=== PATIENT | male | born 1955 | race Caucasian/White ===

== ENCOUNTER 2020-02-08 12:13 | Emergency (ER) | payer OTHER ==
[2020-02-08 12:33] VITALS: TEMP 98.5; BMI 28.1
--- NOTE | 2020-02-08 13:11 | PDOC ---
History of Present Illness - General Chief Complaint: Revisit, Lab Variance Stated Complaint: ABN LABS/LEG WEAKNESS History Source: Patient Exam Limitations: No Limitations - History of Present Illness Initial Comments: 02/08/20 16:08 64 yo M with a hx of HIV and DM presents to the emergency department upon referral for lab abnormality. Per the chart, the patient saw KIERAN Ba who stated the patient had hyponatremia on labs drawn this past saturday. Per the patient, he has had cramps in his legs bilaterally without incontinence of the stool and urine. Denies decreased motor and sensory function in his legs. Denies trauma to the back. Per the patient, he has noted elevated sugars. Per the patient, he is inconsistent with taking his glipizide and metformin, with last dosage yesterday. The patient endorses increased thirst. Denies the following: fevers, chills, chest pain, SOB, nausea, vomiting, dysuria, hematuria, diarrhea, abdominal pain, back pain, neck pain, rash, and leg weakness/swelling. Past History - Medical History Allergies/Adverse Reactions: Allergies Allergy/AdvReac Type Severity Reaction Status Date / Time No Known Drug Allergies Allergy Verified 02/08/20 12:29 Home Medications: Ambulatory Orders Methadone HCl 120 mg PO DAILY 07/30/16 Miscellaneous Medical Supply [Glucometer Device] 1 each TD ASDIR #1 kit 06/25/18 Melatonin/Pyridoxine HCl (B6) [Melatonin 5 mg Tablet] 1 each PO HS PRN #30 tablet 03/25/19 Lidocaine 5% Patch [Lidoderm -] 1 unit TD ASDIR #1 box 05/20/19 Naloxone HCl [Narcan] 4 mg NS PRN #2 spray 07/22/19 Hydrocortisone 1% Cream [Hytone 1% Cream -] 1 applic TP BID #1 tube 09/22/19 Quetiapine Fumarate [Seroquel -] 100 mg PO HS #30 tablet 01/07/20 Zolpidem Tartrate [Ambien] 5 mg PO HS PRN #20 tablet MDD 1 01/07/20 Acetaminophen [Tylenol .Regular Strength -] 2 tab PO BID PRN #30 tablet 01/28/20 Cyclobenzaprine HCl [Flexeril 10 mg] 1 tab PO HS PRN #30 tablet 01/28/20 Alcohol Antiseptic Pads [Alcohol Prep Pads] 1 each TP BID #1 box 02/05/20 Aspirin [Aspirin EC] 1 tab PO DAILY #30 tablet.dr 02/05/20 Atorvastatin Ca [Lipitor] 1 tab PO HS #30 tablet 02/05/20 Blood Sugar Diagnostic [Test Strips] 1 each MC BIDAC #1 box 02/05/20 Clotrimazole [Mycelex Dante's -] 1 tab PO 5XD #35 dante 02/05/20 Darunavir Ethanolate [Prezista -] 1 tab PO DAILY #30 tablet 02/05/20 Docusate Sodium [Colace -] 1 cap PO HS #30 capsule 02/05/20 Glipizide [Glipizide Xl] 1 tab PO DAILY #30 tab.sr 02/05/20 Metformin HCl [Glucophage] 1 tab PO DAILY #30 tablet 02/05/20 Nicotine [Nicotine Patch 7 mg/24 hr] 1 each TD DAILY #1 box 02/05/20 Raltegravir [Isentress] 1 tab PO BID #60 tab 02/05/20 Ritonavir/Lopinavir [Kaletra 200Mg/50Mg -] 2 tab PO BID #120 tablet 02/05/20 Anemia: No Asthma: No Cancer: No Cardiac Disorders: No CVA: No COPD: No CHF: No Dementia: No Diabetes: Yes GI Disorders: No ( ) Disorders: No HTN: No Hypercholesterolemia: No Liver Disease: No Seizures: No Thyroid Disease: No - Surgical History Abdominal Surgery: No Appendectomy: No Cardiac Surgery: No Cholecystectomy: No Lung Surgery: No Neurologic Surgery: No - Psycho-Social/Smoking History Smoking Status: Yes Smoking History: Current every day smoker Have you smoked in the past 12 months: Yes Number of Cigarettes Smoked Daily: 10 If you are a former smoker, when did you quit?: 4 years ago Cigars Per Day: 0 Information on smoking cessation initiated: Yes 'Breaking Loose' booklet given: 04/16/12 - Substance Abuse Hx (Audit-C & DAST Scrn) How often the patient has a drink containing alcohol: Never Score: In Men: 4 or > Positive; In Women: 3 or > Positive: 0 Screen Result (Pos requires Nsg. Audit-10AR): Negative In the last yr the pt used illegal drug/Rx for NonMed reason: No Score: Yes response is considered Positive: 0 Screen Result (Positive result requires Nsg. DAST-10): Negative Review of Systems - Review of Systems Able to Perform ROS?: Yes Is the patient limited Wallisian proficient: No Constitutional: No: Chills, Diaphoresis, Fever, Weakness HEENTM: No: Eye Pain, Ear Pain, Nose Pain, Throat Pain Respiratory: No: Cough, Shortness of Breath Cardiac (ROS): No: Chest Pain, Lightheadedness ABD/GI: Yes: Poor Fluid Intake. No: Diarrhea, Nausea, Vomiting : No: Dysuria, Hematuria Musculoskeletal: No: Back Pain, Joint Pain Integumentary: No: Rash Neurological: No: Headache Endocrine: Yes: Increased Thirst, Increased Urine Hematologic/Lymphatic: No: Anemia *Physical Exam - Vital Signs Last Vital Signs Temp Pulse Resp BP Pulse Ox 98.5 F 91 H 16 112/72 98 02/08/20 12:29 02/08/20 12:29 02/08/20 12:29 02/08/20 12:29 02/08/20 12:29 - Physical Exam General Appearance: Yes: Nourished, Appropriately Dressed. No: Apparent Distress, Intoxicated HEENT: positive: EOMI, ДМИТРИЙ, Normal Voice, Symmetrical, Pharynx Normal, Hearing Grossly Normal, Other (dry mucous membranes). negative: Pale Conjunctivae, Scleral Icterus (R), Scleral Icterus (L), Muffled/Hoarse voice, Pharyngeal Erythema, Tonsillar Exudate, Tonsillar Erythema, Nasal Congestion, Rhinorrhea, Sinus Tenderness, Excessive drooling Neck: positive: Trachea midline, Supple. negative: Tender, Lymphadenopathy (R), Lymphadenopathy (L) Respiratory/Chest: positive: Lungs Clear, Normal Breath Sounds. negative: Chest Tender, Respiratory Distress, Accessory Muscle Use Cardiovascular: positive: Regular Rhythm, Regular Rate, S1, S2. negative: Systolic Murmur Gastrointestinal/Abdominal: positive: Normal Bowel Sounds, Flat, Soft. negative: Tender, Distended, Guarding, Rebound Lymphatic: negative: Adenopathy Musculoskeletal: positive: Normal Inspection. negative: CVA Tenderness, Vertebral Tenderness Extremity: positive: Normal Capillary Refill, Normal Inspection, Normal Range of Motion. negative: Tender, Swelling, Calf Tenderness Integumentary: positive: Normal Color, Dry, Warm Neurologic: positive: singer back tender II-XII NML intact, Fully Oriented, Alert, Normal Mood/Affect, Normal Response, Motor Strength 5/5, Finger to Nose (intact bilaterally), Other (gait within normal limits ). negative: EOM Palsy, Sensory Deficit ED Treatment Course - LABORATORY CBC & Chemistry Diagram: 02/08/20 14:31 02/08/20 14:31 Medical Decision Making - Medical Decision Making 64 yo M with a hx of HIV and DM presents to the emergency department upon referral for lab abnormality. Per the chart, the patient saw KIERAN Ba who stated the patient had hyponatremia on labs drawn this past saturday. Initial vitals; Initial Vital Signs Temp Pulse Resp BP Pulse Ox 98.5 F 91 H 16 112/72 98 02/08/20 12:29 02/08/20 12:29 02/08/20 12:29 02/08/20 12:29 02/08/20 12:29 Work up: The patient presents with hyponatremia With correction of the hyperglycemia to the 02/05/2020 labs which prompted the referral, the patient has a sodium level of 136 which is within normal limits Will repeat labs to ensure the patient does not have hyponatremia. Will provide 2 L of fluids to help the dehydration and hyperglycemia Laboratory Tests 02/08/20 02/08/20 02/08/20 14:31 14:31 16:30 WBC 4.6 RBC 4.30 Hgb 13.4 Hct 40.1 MCV 93.3 MCH 31.2 MCHC 33.5 RDW 13.2 Plt Count 137 MPV 9.4 Absolute Neuts (auto) 2.6 Neutrophils % 56.5 Lymphocytes % 33.8 Monocytes % 7.9 Eosinophils % 1.3 Basophils % 0.5 Nucleated RBC % 0 Sodium 130 L Potassium 4.3 Chloride 95 L Carbon Dioxide 25 Anion Gap 11 BUN 17.7 Creatinine 1.0 Est GFR (CKD-EPI)AfAm 93.08 Est GFR (CKD-EPI)NonAf 80.31 POC Glucometer Random Glucose 325 H Calcium 9.3 Magnesium 1.9 Total Bilirubin 0.5 AST 22 ALT 26 Alkaline Phosphatase 58 Creatine Kinase 97 Troponin I < 0.02 Total Protein 7.4 Albumin 3.7 Urine Color Yellow Urine Appearance Clear Urine pH 5.0 Ur Specific [place] 1.021 Urine Protein Negative Urine Glucose (UA) 3+ H Urine Ketones Negative Urine Blood Negative Urine Nitrite Negative Urine Bilirubin Negative Urine Urobilinogen 0.2 Ur Leukocyte Esterase Negative 02/08/20 17:45 WBC RBC Hgb Hct MCV MCH MCHC RDW Plt Count MPV Absolute Neuts (auto) Neutrophils % Lymphocytes % Monocytes % Eosinophils % Basophils % Nucleated RBC % Sodium Potassium Chloride Carbon Dioxide Anion Gap BUN Creatinine Est GFR (CKD-EPI)AfAm Est GFR (CKD-EPI)NonAf POC Glucometer 252 Random Glucose Calcium Magnesium Total Bilirubin AST ALT Alkaline Phosphatase Creatine Kinase Troponin I Total Protein Albumin Urine Color Urine Appearance Urine pH Ur Specific [place] Urine Protein Urine Glucose (UA) Urine Ketones Urine Blood Urine Nitrite Urine Bilirubin Urine Urobilinogen Ur Leukocyte Esterase POC glucose is 252 on repeat. Patient feels significantly better and has cessation of leg symptoms The patient was instructed to take his medications as prescribed. per the patient, he was inconsistent in his use of glipizide and metformin, likely leading to persistent elevations of hyperglycemia. Per the patient, he also was consuming high-sugar content beverages. I advised the patient to cease these activities. I spoke to his PCP; Ruthann Perez who agreed he needs to be compliant with his medications and proceed to make an appointment with her within the next 48 hours. CXR shows no infiltrates with atelectasis at the base. EKG shows NSR without ST elevations or depresisons. Patient was given strict return precautions Patient was able to ambulate on their own volition without difficulty Discharge - Discharge Information Problems reviewed: Yes Clinical Impression/Diagnosis: Hyperglycemia, Hyponatremia Condition: Good Disposition: HOME - Admission No - Follow up/Referral Referrals: Ruthann Perez, PREVENTATIVE MAINTENANCE TECHNICIAN [Primary Care Provider] - - Patient Discharge Instructions Patient Printed Discharge Instructions: DI for Hyperglycemia -- Adult Additional Instructions: You were seen in the emergency department for the evaluation of your high blood sugar and low sodium. Your sodium is within normal limits when accounted for hyperglycemia. Your uncontrollable sugars are likely due to medication non-adherence. Please take them as prescribed by Ruthann Perez. Please return to the emergency department if you have worsening symptoms or new concerning symptoms such as increased work of breathing, pain, and fevers. Please follow up with Ruthann Perez within 48 hours after discharge for follow up care and m anagement. I spoke to Ruthann Perez and she agreed to see you within this week. - Post Discharge Activity
[2020-02-08] MEDS ORDERED: SODIUM CHLORIDE 1,000 ML IV STA ×2 (13:47→15:25)
[2020-02-08 14:45] LABS: BASO % 0.5 % (0-2.0); EOS % 1.3 % (0-4.5); HEMATOCRIT 40.1 % (35.4-49); HEMOGLOBIN 13.4 GM/dL (11.7-16.9); LYMPH % 33.8 % (8-40); MCH 31.2 pg (25.7-33.7); MCHC 33.5 g/dl (32.0-35.9); MEAN CELL VOLUME 93.3 fl (80-96); MEAN PLT VOLUME 9.4 fl (7.5-11.1); MONO % 7.9 % (3.8-10.2); NEUT % 56.5 % (42.8-82.8); PLATELET COUNT 137 K/MM3 (134-434); RDW 13.2 % (11.9-15.9); WHITE BLOOD COUNT 4.6 K/mm3 (4.0-10.0)
[2020-02-08 15:04] LABS: CHLORIDE 95 mmol/L (98-107); POTASSIUM 4.3 mmol/L (3.5-5.1); SODIUM 130 mmol/L (136-145)
[2020-02-08 15:07] LABS: ALBUMIN 3.7 g/dl (3.4-5.0); ANION GAP 11 MMOL/L (8-16); BLOOD UREA NITROGEN 17.7 mg/dL (7-18); CALCIUM 9.3 mg/dL (8.5-10.1); CO2 25 mmol/L (21-32); GLUCOSE,RANDOM 325 mg/dL (74-106); MAGNESIUM 1.9 mg/dL (1.8-2.4)
[2020-02-08 15:10] LABS: SGOT/AST 22 U/L (15-37); SGPT/ALT 26 U/L (13-61)
[2020-02-08 15:12] LABS: BILIRUBIN,TOTAL 0.5 mg/dL (0.2-1); TOT PROT 7.4 g/dl (6.4-8.2)
[2020-02-08 15:14] LABS: ALK PHOS 58 U/L (45-117)
--- NOTE | 2020-02-08 15:14 | EKG ---
Test Reason : Blood Pressure : / mmHG Vent. Rate : 076 BPM Atrial Rate : 076 BPM P-R Int : 158 ms QRS Dur : 090 ms QT Int : 360 ms P-R-T Axes : 077 062 058 degrees QTc Int : 405 ms NORMAL SINUS RHYTHM NORMAL ECG WHEN COMPARED WITH ECG OF 05-FEB-2020 08:57, NO SIGNIFICANT CHANGE WAS FOUND Confirmed by DL LUDWIG MD ([id number]) on 02/08/2020 3:14:23 PM Referred By: Confirmed By:DL LUDWIG MD
--- NOTE | 2020-02-08 15:28 | PDOC ---
Documentation entered by Oumou De La Torre SCRIBE, acting as scribe for Meet Mg MD. Meet Mg MD: This documentation has been prepared by the Wil mendiola Xhesika, SCRIBE, under my direction and personally reviewed by me in its entirety. I confirm that the documentation accurately reflects all work, treatment, procedures, and medical decision making performed by me. Attending Attestation - Resident Resident Name: Eddie Pendleton - ED Attending Attestation I have performed the following: I have examined & evaluated the patient, The case was reviewed & discussed with the resident, I agree w/resident's findings & plan, Exceptions are as noted - HPI HPI: 02/08/20 13:21 64y/o M with a pmh of DM on metformin and chronic leg instability who presents to the ED sent by PMD for low sodium (130) and BLE swelling and cramps. Pt states he had outpatient labs done on Sunday 02/04 and received a call today from PMD, prompting pt to come to the ED for low sodium levels. Pt reports 2 weeks of BLE swelling and cramps R>L, worse at night. Pt states he had a similar episode 7 years ago. Pt reports frequent urination and feeling more thirsty than usual. Pt states he has been eating junk food and his GS levels have been higher and not well controlled. Pt states he had a 10lb weight loss in the last month. Allergies: NKDA Social Hx: On disability, Former IV drug user, former 1ppd tobacco user (quit 2 weeks ago) - Physicial Exam PE: 02/08/20 13:29 Vitals: Triage Vital signs reviewed General Appearance: no acute distress, well nourished well developed, Chest Wall: Nontender Cardiac: Regular rate and rhythm, no murmurs, no rubs, no gallops, Lungs: Clear to auscultation bilateral, good air movement bilaterally, Abdomen: Soft, nondistended, normal bowel sounds, nontender to palpation Extremities: Full range of motion to all extremities, no cyanosis, clubbing, or edema Skin: Warm and dry, no rashes or lesions, no petechiae Neuro: AOX3; Cranial Nerves 2-12 grossly c intact, Strength intact to all extremities, Sensation intact to all extremities Psych: normal mood, normal affect - Medical Decision Making 02/09/20 15:54 Sodium 135 when corrected for hyperglycemia patient endorses not taking his diabetes medications as prescribed Will recommend strict adherence to his glipizide and Metformin he will follow-up with his primary care doctor in 2 to 3 days Findings, need for follow-up and strict return instructions discussed with patient. Discharge - Discharge Information Problems reviewed: Yes Clinical Impression/Diagnosis: Hyperglycemia, Hyponatremia Condition: Good Disposition: HOME - Follow up/Referral Referrals: Ruthann Perez [employer] [Primary Care Provider] - - Patient Discharge Instructions Patient Printed Discharge Instructions: DI for Hyperglycemia -- Adult Additional Instructions: You were seen in the emergency department for the evaluation of your high blood sugar and low sodium. Your sodium is within normal limits when accounted for hyperglycemia. Your uncontrollable sugars are likely due to medication non- adherence. Please take them as prescribed by Ruthann Perez. Please return to the emergency department if you have worsening symptoms or new concerning symptoms such as increased work of breathing, pain, and fevers. Please follow up with Ruthann Perez within 48 hours after discharge for follow up care and management. I spoke to Ruthann Perez and she agreed to see you within this week. - Post Discharge Activity
[2020-02-08 17:10] LABS: URINE APPEARANCE CLEAR; URINE BILIRUBIN NEGATIVE (NEGATIVE); URINE COLOR YELLOW; URINE GLUCOSE (UA) 3+ (NEGATIVE); URINE KETONE NEGATIVE (NEGATIVE); URINE LEUK ESTERASE NEGATIVE (NEGATIVE); URINE NITRITE NEGATIVE (NEGATIVE); URINE PROTEIN NEGATIVE (NEGATIVE); URINE UROBILINOGEN 0.2 mg/dL (0.2-1.0)
[2020-02-08 17:56] VITALS: BP 118/89; PULSE 90
== END 2020-02-08 17:58 | disposition home or self-care (01) ==
LOC: JER 12:13
PROC: 3E0337Z Introduction of Electrolytic and Water Balance Substance into Peripheral Vein, Percutaneous Approach (ICD-10-PCS; principal; 2020-02-08)
PROC: 3E0337Z Introduction of Electrolytic and Water Balance Substance into Peripheral Vein, Percutaneous Approach (ICD-10-PCS; 2020-02-08)
DX: R73.9 Hyperglycemia, unspecified (principal); E87.1 Hypo-osmolality and hyponatremia
CPT/HCPCS: 36415; 71045-TC-FY; 80053; 81003; 82550; 82962; 83735; 84484; 85025; 87086; 93005; 93010; 99285-25

== ENCOUNTER 2020-02-22 17:28 | Emergency (ER) | payer OTHER ==
[2020-02-22 18:14] VITALS: BP 157/87; PULSE 91; TEMP 98.8; BMI 28.1
== END 2020-02-22 18:21 | disposition home or self-care (01) ==
LOC: FER 17:28
DX: M79.662 Pain in left lower leg (principal); R11.0 Nausea; G58.9 Mononeuropathy, unspecified
CPT/HCPCS: 99283-25

== ENCOUNTER 2021-06-22 04:54 | Day surgery (SDC) | payer OTHER ==
[2021-06-19 09:39] VITALS: BMI 28.8
[2021-06-22 10:02] VITALS: TEMP 97.8
[2021-06-22 10:10] VITALS: BP 115/61; PULSE 80
== END 2021-06-22 10:19 | disposition home or self-care (01) ==
LOC: JASU-ENDO 04:54
PROVIDERS: ATTEND Internal Medicine Gastroenterology
PROC: 0DJD8ZZ Inspection of Lower Intestinal Tract, Via Natural or Artificial Opening Endoscopic (ICD-10-PCS; principal; 2021-06-22 08:45)
DX: Z12.11 Encounter for screening for malignant neoplasm of colon (principal); Z21 Asymptomatic human immunodeficiency virus [HIV] infection status; Z79.899 Other long term (current) drug therapy; E11.9 Type 2 diabetes mellitus without complications; Z79.84 Long term (current) use of oral hypoglycemic drugs
CPT/HCPCS: 82962

== ENCOUNTER 2022-05-06 12:09 | Emergency (ER) | payer OTHER ==
[2022-05-06 12:34] VITALS: TEMP 98; BMI 26.6
[2022-05-06] MEDS ORDERED: ACETAMINOPHEN 1000 MG/100 ML BAG IVPB ONE (12:39)
[2022-05-06] MEDS ORDERED: ACETAMINOPHEN INJECTION 100 ML IVPB ONE (13:01)
[2022-05-06 13:15] LABS: INR 1.03 (0.83-1.09); PROTHROMBIN TIME (PATIENT) 11.8 SEC (9.7-13.0)
[2022-05-06 13:17] LABS: ACTIVATED PTT 31.9 SECONDS (25.2-36.5)
[2022-05-06 13:18] LABS: HEMATOCRIT 41.1 % (35.4-49); HEMOGLOBIN 14.2 G/dL (11.7-16.9); MCH 32.1 pg (25.7-33.7); MCHC 34.5 g/dl (32.0-35.9); MEAN CELL VOLUME 93.1 fl (80-96); PLATELET COUNT 153.7 10^3/uL (134-434); RBC 4.41 10^6/uL (4.00-5.60); RDW 13.4 % (11.9-15.9); WHITE BLOOD COUNT 6.2 10^3/uL (4.0-10.8)
[2022-05-06 13:24] LABS: ALBUMIN 4.3 g/dl (3.4-5.0); CALCIUM 9.5 mg/dl (8.5-10); CREATININE 1.3 mg/dl (0.55-1.3); MAGNESIUM 1.6 mg/dL (1.8-2.4); TOT PROT 7.2 g/dl (6.4-8.2)
[2022-05-06] MEDS ORDERED: MAGNESIUM SULF 50% (8.12 MEQ/2 ML-1 GM VIAL) IVPB ONE (14:07)
[2022-05-06] MEDS ORDERED: MAGNESIUM SULFATE IN WATER 2 GM/50 ML IVPB IVPB ONE (14:10)
[2022-05-06 14:48] LABS: LACTIC ACID 5.5 mmol/L (0.4-2.0)
[2022-05-06] MEDS ORDERED: SODIUM CHLORIDE 1,000 ML IV ONE (14:52)
[2022-05-06] MEDS ORDERED: SODIUM CHLORIDE 0.9% 500 ML INFUS.BAG IV ONE (16:26)
[2022-05-06 17:13] VITALS: BP 132/78; PULSE 84; RESP 18
[2022-05-06 19:10] LABS: LACTIC ACID 2.4 mmol/L (0.4-2.0)
== END 2022-05-06 18:00 | disposition left against medical advice (07) ==
LOC: FER 12:09
PROC: 3E0333Z Introduction of Anti-inflammatory into Peripheral Vein, Percutaneous Approach (ICD-10-PCS; principal; 2022-05-06)
PROC: 3E033GC Introduction of Other Therapeutic Substance into Peripheral Vein, Percutaneous Approach (ICD-10-PCS; 2022-05-06)
PROC: 3E0337Z Introduction of Electrolytic and Water Balance Substance into Peripheral Vein, Percutaneous Approach (ICD-10-PCS; 2022-05-06)
DX: R10.12 Left upper quadrant pain (principal)
CPT/HCPCS: 36415; 71045-TC-FY; 74175-TC; 80053; 81003; 83605; 83690; 83735; 84484; 85027; 85610; 85730; 87086; 93005; 99285-25; Q9967

== ENCOUNTER 2022-11-27 10:00 | Inpatient (IN) | payer MEDICARE, OTHER ==
[2022-12-19 14:56] VITALS: BMI 27.7
[2022-12-24] MEDS ORDERED: MIDAZOLAM HCL 2 MG/2 ML SINGLE DOSE VIAL ONE (12:45)
[2022-12-24] MEDS ORDERED: PROPOFOL 20 ML ONE (12:45)
[2022-12-24] MEDS ORDERED: HEPARIN NA (PORCINE) 5,000 UNITS/ML 1ML VIAL ONE (12:55)
[2022-12-24] MEDS ORDERED: ONDANSETRON 4 MG/2 ML VIAL ONE ×2 (13:53→15:07)
[2022-12-24] MEDS ORDERED: DEXAMETHASONE SOD PHOSPHATE 4 MG/1 ML VIAL ONE (13:53)
[2022-12-24] MEDS ORDERED: cefOXitin SODIUM 2 GM VIAL (RESTRICTED TO ID) IVPB ONE (14:01)
[2022-12-24] MEDS ORDERED: HEPARIN NA (PORCINE) 5,000 UNITS/ML 1ML VIAL SQ ONE (14:04)
[2022-12-24] MEDS ORDERED: BUPIVACAINE HCL/PF 0.25% (2.5MG/ML) 10 ML VIAL IJ ONE (14:17)
[2022-12-24] MEDS ORDERED: HYDROmorphone HCl 2 MG/ML VIAL ONE (14:22)
[2022-12-24] MEDS ORDERED: ACETAMINOPHEN INJECTION 100 ML IVPB ONE (14:22)
[2022-12-24] MEDS ORDERED: KETOROLAC TROMETHAMINE 30 MG/1 ML VIAL ONE (14:59)
[2022-12-24] MEDS ORDERED: GLYCOPYRROLATE 0.2 MG/1 ML VIAL ONE (15:07)
[2022-12-24] MEDS ORDERED: NEOSTIGMINE METHYLSULFATE 0.5 MG/1 ML - 10 ML MDV ONE (15:07)
[2022-12-24] MEDS ORDERED: ONDANSETRON 4 MG/2 ML VIAL IVPUSH PRN (16:37)
[2022-12-24] MEDS ORDERED: LACTATED RINGERS SOLUTION 1,000 ML IV SCH (16:45)
[2022-12-24] MEDS ORDERED: oxyCODONE HCL 10 MG SUSTAINED ACTING TABLET PO ONE (17:49)
[2022-12-24] MEDS ORDERED: oxyCODONE HCL 10 MG SUSTAINED ACTING TABLET ONE (19:21)
[2022-12-24 20:35] VITALS: BP 142/83; PULSE 76; RESP 20; TEMP 97.9
== END 2022-12-24 19:50 | disposition home or self-care (01) | DRG 331 ==
LOC: EDSTATUS 12-24 08:00 → J2C 12-24 10:00 → UNDOADMIN 12-24 11:50 → J2C 12-24 11:50
PROVIDERS: ADMIT Surgery; ATTEND Surgery
PROC: 0DTH4ZZ Resection of Cecum, Percutaneous Endoscopic Approach (ICD-10-PCS; principal; 2022-12-24 12:00)
DX: K38.8 Other specified diseases of appendix (principal); E11.9 Type 2 diabetes mellitus without complications; I10 Essential (primary) hypertension
CPT/HCPCS: 82962; 88304-TC; 94760; J1644

== ENCOUNTER 2023-12-19 12:26 | Emergency (ER) | payer MEDICARE, OTHER ==
[2023-12-19 12:37] VITALS: BMI 25.8
[2023-12-19] MEDS: SODIUM CHLORIDE 0.9% 500 ML INFUS.BAG IV ONE ×2 (13:35→14:14)
[2023-12-19 14:03] LABS: BASO % 0.3 % (0-2.0); EOS % 0.2 % (0-4.5); HEMATOCRIT 38.2 % (35.4-49); HEMOGLOBIN 12.9 GM/dL (11.7-16.9); LYMPH % 15.4 % (8-40); MCH 32.7 pg (25.7-33.7); MCHC 33.8 g/dl (32.0-35.9); MEAN CELL VOLUME 96.8 fl (80-96); MEAN PLT VOLUME 8.6 fl (7.5-11.1); MONO % 5.9 % (3.8-10.2); NEUT % 78.2 % (42.8-82.8); PLATELET COUNT 151 10^3/uL (134-434); RBC 3.95 M/mm3 (4.00-5.60); RDW 15.6 % (11.9-15.9); WHITE BLOOD COUNT 5.4 K/mm3 (4.0-10.0)
[2023-12-19 14:03] LABS: PH,URINE 5.5 (5.0-8.0); URINE APPEARANCE CLEAR; URINE BILIRUBIN NEGATIVE (NEGATIVE); URINE COLOR YELLOW; URINE GLUCOSE (UA) 3+ (NEGATIVE); URINE KETONE NEGATIVE (NEGATIVE); URINE LEUK ESTERASE NEGATIVE (NEGATIVE); URINE NITRITE NEGATIVE (NEGATIVE); URINE PROTEIN NEGATIVE (NEGATIVE); URINE UROBILINOGEN 0.2 mg/dL (0.2-1.0)
[2023-12-19 14:24] LABS: CHLORIDE 96 mmol/L (98-107); POTASSIUM 4.6 mmol/L (3.5-5.1); SODIUM 133 mmol/L (136-145)
[2023-12-19 14:26] LABS: MAGNESIUM 1.8 mg/dL (1.8-2.4)
[2023-12-19 14:27] LABS: CALCIUM 9.7 mg/dL (8.5-10.1)
[2023-12-19 14:28] LABS: ALBUMIN 3.8 g/dl (3.4-5.0); ANION GAP 12 mmol/L (4-13); BLOOD UREA NITROGEN 22.8 mg/dL (7-18); CO2 25 mmol/L (21-32)
[2023-12-19 14:29] LABS: PHOSPHOROUS 2.9 mg/dL (2.5-4.9)
[2023-12-19 14:32] LABS: BILIRUBIN,TOTAL 0.9 mg/dL (0.2-1); CREATININE 1.3 mg/dL (0.55-1.3); SGOT/AST 22 U/L (15-37); SGPT/ALT 33 U/L (13-61)
[2023-12-19 14:33] LABS: TOT PROT 7.3 g/dl (6.4-8.2)
[2023-12-19 14:34] LABS: ALK PHOS 59 U/L (45-117)
[2023-12-19 14:35] LABS: GLUCOSE,RANDOM 551 mg/dL (74-106)
[2023-12-19 14:38] LABS: VENOUS O2 SATURATION 84.3 % (70-80); VENOUS PCO2 43.5 mmHg (38-52); VENOUS PH 7.353 (7.310-7.410)
[2023-12-19] MEDS ORDERED: INSULIN REGULAR HUMAN 100 UNITS/ML *VIAL ONE (14:58)
[2023-12-19 14:59] VITALS: RESP 19
[2023-12-19] MEDS: INSULIN REGULAR HUMAN 100 UNITS/ML *VIAL SQ ONE (15:01)
[2023-12-19 15:26] LABS: LACTIC ACID 2.7 mmol/L (0.4-2.0)
[2023-12-19 18:21] VITALS: BP 144/62; PULSE 89; TEMP 98.2
== END 2023-12-19 18:17 | disposition home or self-care (01) ==
LOC: JER 12:26
PROC: 3E013GC Introduction of Other Therapeutic Substance into Subcutaneous Tissue, Percutaneous Approach (ICD-10-PCS; principal; 2023-12-19)
DX: E11.65 Type 2 diabetes mellitus with hyperglycemia (principal); R53.1 Weakness; R35.0 Frequency of micturition; Z20.822 Contact with and (suspected) exposure to COVID-19; Z79.4 Long term (current) use of insulin
CPT/HCPCS: 0241U-QW; 36415; 71045-TC-FY; 80053; 81003; 82010; 82803; 82962; 83036; 83605; 83735; 84100; 84484; 85025; 87086; 93005; 93010; 96372; 99285-25

== ENCOUNTER 2023-12-22 10:45 | Observation (INO) | payer MEDICARE, OTHER ==
[2023-12-22 11:11] VITALS: RESP 18
[2023-12-22] MEDS: SODIUM CHLORIDE 0.9% 500 ML INFUS.BAG IV ONE ×2 (12:39→12:48)
[2023-12-22 12:51] LABS: BASO % 0.3 % (0-2.0); EOS % 0.2 % (0-4.5); HEMATOCRIT 36.6 % (35.4-49); HEMOGLOBIN 12.9 GM/dL (11.7-16.9); LYMPH % 22.7 % (8-40); MCH 33.5 pg (25.7-33.7); MCHC 35.2 g/dl (32.0-35.9); MEAN CELL VOLUME 94.9 fl (80-96); MEAN PLT VOLUME 8.2 fl (7.5-11.1); MONO % 6.2 % (3.8-10.2); NEUT % 70.6 % (42.8-82.8); PLATELET COUNT 141 10^3/uL (134-434); RBC 3.86 M/mm3 (4.00-5.60); RDW 16.3 % (11.9-15.9); WHITE BLOOD COUNT 5.6 K/mm3 (4.0-10.0)
[2023-12-22 12:54] LABS: POTASSIUM 4.5 mmol/L (3.5-5.1)
[2023-12-22 12:58] LABS: CALCIUM 10.3 mg/dL (8.5-10.1)
[2023-12-22 12:59] LABS: ALBUMIN 3.9 g/dl (3.4-5.0)
[2023-12-22 13:02] LABS: CREATININE 1.2 mg/dL (0.55-1.3)
[2023-12-22 13:04] LABS: BILIRUBIN,TOTAL 0.8 mg/dL (0.2-1)
[2023-12-22 13:07] LABS: ACTIVATED PTT 28.5 SECONDS (25.2-36.5); INR 0.95 (0.83-1.09); PROTHROMBIN TIME (PATIENT) 10.8 SEC (9.7-13.0)
[2023-12-22 15:32] LABS: URINE APPEARANCE CLEAR; URINE BILIRUBIN NEGATIVE (NEGATIVE); URINE COLOR YELLOW; URINE GLUCOSE (UA) 3+ (NEGATIVE); URINE KETONE NEGATIVE (NEGATIVE); URINE LEUK ESTERASE NEGATIVE (NEGATIVE); URINE NITRITE NEGATIVE (NEGATIVE); URINE PROTEIN NEGATIVE (NEGATIVE); URINE UROBILINOGEN 0.2 mg/dL (0.2-1.0)
[2023-12-22] MEDS: APIXABAN 5 MG TABLET PO SCH (16:04)
[2023-12-22] MEDS ORDERED: QUEtiapine FUMARATE 50 MG TABLET ONE (21:17)
[2023-12-22] MEDS: ZOLPIDEM TARTRATE 5 MG TABLET PO SCH (21:39)
[2023-12-22] MEDS: QUEtiapine FUMARATE 100 MG TABLET (FP) PO SCH (21:39)
[2023-12-23] MEDS: metFORMIN HCL 500 MG TABLET (FP) PO SCH (06:24)
[2023-12-23] MEDS: EMPAGLIFLOZIN (JARDIANCE) 10 MG TABLET PO SCH (06:24)
[2023-12-23 08:45] LABS: BASO % 0.4 % (0-2.0); EOS % 0.5 % (0-4.5); HEMATOCRIT 37.2 % (35.4-49); HEMOGLOBIN 12.9 GM/dL (11.7-16.9); LYMPH % 31.6 % (8-40); MCHC 34.5 g/dl (32.0-35.9); MEAN CELL VOLUME 95.6 fl (80-96); MEAN PLT VOLUME 8.5 fl (7.5-11.1); MONO % 5.9 % (3.8-10.2); NEUT % 61.6 % (42.8-82.8); PLATELET COUNT 135 10^3/uL (134-434); RBC 3.89 M/mm3 (4.00-5.60); RDW 16.2 % (11.9-15.9); WHITE BLOOD COUNT 4.8 K/mm3 (4.0-10.0)
[2023-12-23 08:50] LABS: POTASSIUM 4.1 mmol/L (3.5-5.1)
[2023-12-23 08:53] LABS: CALCIUM 9.2 mg/dL (8.5-10.1)
[2023-12-23 08:54] LABS: BLOOD UREA NITROGEN 19.1 mg/dL (7-18)
[2023-12-23 08:57] LABS: CREATININE 0.8 mg/dL (0.55-1.3)
[2023-12-23] MEDS: DOLUTEGRAVIR SODIUM 50 MG TABLET (NON-FORMULARY) PO SCH (09:58)
[2023-12-23] MEDS: DARUNAVIR 800 MG/COBICISTAT 150MG TABLET PO SCH (09:58)
[2023-12-23] MEDS ORDERED: methaDONE HCL 40 MG DISPERSABLE TABLET PO SCH (11:30)
[2023-12-23] MEDS: methaDONE 40 MG, methaDONE 20 MG PO SCH (12:16)
[2023-12-23 13:15] VITALS: BP 164/75; PULSE 95; TEMP 98.1
[2023-12-23 15:07] VITALS: BMI 25.4
[2023-12-24] MEDS ORDERED: MULTIVITAMINS (DAILY MVI) TABLET (FP) PO SCH (10:00)
== END 2023-12-23 17:11 | disposition home or self-care (01) ==
LOC: JER 10:45 → JERBED 14:52 → INTOOBSV 14:52 → J7W 17:29
PROVIDERS: ADMIT Internal Medicine; ATTEND Registered Nurse
PROC: 3E0337Z Introduction of Electrolytic and Water Balance Substance into Peripheral Vein, Percutaneous Approach (ICD-10-PCS; principal; 2023-12-22)
DX: I82.412 Acute embolism and thrombosis of left femoral vein (principal); I82.432 Acute embolism and thrombosis of left popliteal vein; E11.9 Type 2 diabetes mellitus without complications; Z79.891 Long term (current) use of opiate analgesic; I73.9 Peripheral vascular disease, unspecified; G89.29 Other chronic pain; Z86.19 Personal history of other infectious and parasitic diseases; F32.A Depression, unspecified; M19.90 Unspecified osteoarthritis, unspecified site; Z21 Asymptomatic human immunodeficiency virus [HIV] infection status; F17.210 Nicotine dependence, cigarettes, uncomplicated
CPT/HCPCS: 36415; 71045-TC-FY; 71275-TC; 73590-TC-LT-FY; 73610-TC-LT-FY; 73630-TC-LT; 73700-TC-RT; 80048; 80053; 81003; 82962; 85025; 85610; 85730; 87086; 93005; 93010; 93970-TC; 99285-25; G0378; Q9967

== ENCOUNTER 2024-03-08 09:40 | Emergency (ER) | payer MEDICARE, OTHER ==
[2024-03-08 09:47] VITALS: BP 176/96; PULSE 83; RESP 18; TEMP 97.8; BMI 27.0
[2024-03-08] MEDS ORDERED: ONDANSETRON 4 MG/2 ML VIAL ONE (10:29)
[2024-03-08] MEDS: ONDANSETRON 4 MG/2 ML VIAL IVPUSH ONE (10:45)
[2024-03-08 11:00] LABS: BASO % 0.7 % (0-2.0); EOS % 0.4 % (0-4.5); HEMATOCRIT 43.8 % (35.4-49); LYMPH % 16.9 % (8-40); MCH 32.7 pg (25.7-33.7); MCHC 34.2 g/dl (32.0-35.9); MEAN CELL VOLUME 95.6 fl (80-96); MEAN PLT VOLUME 8.9 fl (7.5-11.1); MONO % 5.8 % (3.8-10.2); NEUT % 76.2 % (42.8-82.8); PLATELET COUNT 195 10^3/uL (134-434); RBC 4.58 M/mm3 (4.00-5.60); RDW 12.9 % (11.9-15.9); WHITE BLOOD COUNT 8.3 K/mm3 (4.0-10.0)
[2024-03-08 11:12] LABS: POTASSIUM 4.3 mmol/L (3.5-5.1)
[2024-03-08 11:15] LABS: ALBUMIN 4.4 g/dl (3.4-5.0); BLOOD UREA NITROGEN 26.3 mg/dL (7-18); MAGNESIUM 1.8 mg/dL (1.8-2.4)
[2024-03-08 11:18] LABS: CREATININE 1.2 mg/dL (0.55-1.3)
[2024-03-08 11:19] LABS: BILIRUBIN,TOTAL 0.6 mg/dL (0.2-1)
[2024-03-08 11:20] LABS: TOT PROT 7.5 g/dl (6.4-8.2)
== END 2024-03-08 13:15 | disposition home or self-care (01) ==
LOC: JER 09:40
PROC: 3E033GC Introduction of Other Therapeutic Substance into Peripheral Vein, Percutaneous Approach (ICD-10-PCS; principal; 2024-03-08)
DX: R11.0 Nausea (principal); Z20.822 Contact with and (suspected) exposure to COVID-19
CPT/HCPCS: 0241U-QW; 36415; 80053; 82962; 83735; 84439; 84443; 84484; 85025; 93005; 93010; 96374; 99284-25

== ENCOUNTER 2025-01-15 18:48 | Inpatient (IN) | payer MEDICARE, OTHER ==
[2025-01-15 20:18] LABS: ABSOLUTE IMMATURE GRANULOCYTES 0.08 x10^3/uL (0.0-0.031); BASOPHILS # 0.01 x10^3/uL (0.01-0.08); EOSINOPHIL % 0.0 % (0.8-7.0); EOSINOPHILS # 0.00 x10^3/uL (0.04-0.54); MCHC 34.3 g/dl (32.3-36.5); MEAN CELL VOLUME 89.2 fl (79.0-92.2); MEAN PLT VOLUME 10.5 fl (9.4-12.4); MONOCYTE # 0.53 x10^3/uL (0.30-0.82); MONOCYTE % 8.5 % (5.3-12.2); RDW 12.1 % (12.2-16.4)
[2025-01-15 20:21] LABS: BG HCT 46.0 % (35.4-49); VENOUS BASE EXCESS -1.1 mmol/L (-2-2); VENOUS O2 SATURATION 74.4 % (70-80); VENOUS PCO2 36.7 mmHg (38-52); VENOUS PH 7.414 (7.310-7.410)
[2025-01-15] MEDS: LACTATED RINGERS SOLUTION 1000 ML INFUS.BAG IV ONE ×2 (20:24→22:14)
[2025-01-15 20:28] LABS: URINE APPEARANCE CLEAR; URINE BILIRUBIN NEGATIVE (NEGATIVE); URINE COLOR YELLOW; URINE GLUCOSE (UA) 3+ (NEGATIVE); URINE KETONE NEGATIVE (NEGATIVE); URINE LEUK ESTERASE NEGATIVE (NEGATIVE); URINE NITRITE NEGATIVE (NEGATIVE); URINE PROTEIN NEGATIVE (NEGATIVE); URINE UROBILINOGEN 0.2 mg/dL (0.2-1.0)
[2025-01-15 20:40] LABS: GLUCOSE,RANDOM 511 mg/dL (74-106); TOT PROT 8.3 g/dl (6.4-8.2)
[2025-01-15 20:41] LABS: CO2 22 mmol/L (21-32)
[2025-01-15 20:43] LABS: ALK PHOS 60 U/L (40-150)
[2025-01-15 20:46] LABS: CREATININE 1.05 mg/dL (0.55-1.3); SGOT/AST 46 U/L (5-34); SGPT/ALT 51 U/L (0-55)
[2025-01-15 21:09] LABS: HIV INTERPRETATION PRESUMPTIVE POSITIVE (NEGATIVE)
[2025-01-15 21:12] LABS: HCV DIAGNOSTIC IN-HOUSE W/RFLX REACTIVE (NONREACTIVE)
[2025-01-15] MEDS: INSULIN (NOVOLOG) ASPART 100 UNITS/ML 10ML VIAL SQ ONE ×2 (22:06→22:16)
[2025-01-15] MEDS ORDERED: PATIENT'S OWN MEDICATION (NON-FORMULARY) (Tizanidine Hcl [Tizanidine Hcl] 2 MG Tablet) PO PRN (23:55)
[2025-01-16] MEDS: SODIUM CHLORIDE 1,000 ML IV SCH ×4 (01:01→14:53)
[2025-01-16] MEDS: INSULIN ASPART SLIDING SCALE (NOVOLOG) 1 VIAL SQ SCH (01:02)
[2025-01-16] MEDS ORDERED: ZOLPIDEM TARTRATE 5 MG TABLET ONE (01:04)
[2025-01-16] MEDS: ZOLPIDEM TARTRATE 5 MG TABLET PO PRN (01:08)
[2025-01-16] MEDS ORDERED: amLODIPine BESYLATE 5 MG TABLET (FP) ONE (01:41)
[2025-01-16] MEDS: amLODIPine BESYLATE 5 MG TABLET (FP) PO ONE (01:47)
[2025-01-16 04:26] VITALS: BMI 26.9
[2025-01-16 07:37] LABS: ABSOLUTE IMMATURE GRANULOCYTES 0.07 x10^3/uL (0.0-0.031); BASOPHILS # 0.01 x10^3/uL (0.01-0.08); EOSINOPHIL % 0.0 % (0.8-7.0); EOSINOPHILS # 0.00 x10^3/uL (0.04-0.54); MCHC 34.2 g/dl (32.3-36.5); MEAN CELL VOLUME 88.5 fl (79.0-92.2); MEAN PLT VOLUME 10.4 fl (9.4-12.4); MONOCYTE # 0.66 x10^3/uL (0.30-0.82); MONOCYTE % 9.8 % (5.3-12.2); RDW 12.2 % (12.2-16.4)
[2025-01-16 08:01] LABS: GLUCOSE,RANDOM 164.0 mg/dL (74-106); TOT PROT 6.5 g/dl (6.4-8.2)
[2025-01-16 08:02] LABS: CO2 24.0 mmol/L (21-32)
[2025-01-16 08:04] LABS: ALK PHOS 45.0 U/L (40-150)
[2025-01-16 08:06] LABS: SGOT/AST 35.0 U/L (5-34); SGPT/ALT 37.0 U/L (0-55)
[2025-01-16 08:07] LABS: CREATININE 0.9 mg/dL (0.55-1.3)
[2025-01-16] MEDS: FAMOTIDINE 20 MG TABLET PO SCH (09:37)
[2025-01-16] MEDS: DOCUSATE SODIUM 100 MG CAPSULE (FP) PO SCH (09:37)
[2025-01-16] MEDS: APIXABAN 2.5 MG TABLET PO SCH (09:38)
[2025-01-16] MEDS: CELECOXIB 200 MG CAPSULE PO SCH (09:38)
[2025-01-16] MEDS: POLYETHYLENE GLYCOL (HEALTHYLAX) 3350 17 GM PACKET PO SCH (09:38)
[2025-01-16] MEDS: DARUNAVIR 800 MG/COBICISTAT 150MG TABLET PO SCH (09:38)
[2025-01-16] MEDS: GABAPENTIN 300 MG CAPSULE PO SCH (09:38)
[2025-01-16] MEDS: DOLUTEGRAVIR SODIUM 50 MG TABLET (NON-FORMULARY) PO SCH (09:39)
[2025-01-16] MEDS ORDERED: POLYETHYLENE GLYCOL 3350 255 GM BTL PO SCH (10:00)
[2025-01-16 13:17] LABS: GLUCOSE,RANDOM 311.0 mg/dL (74-106)
[2025-01-16 13:19] LABS: CO2 20.0 mmol/L (21-32)
[2025-01-16 13:23] LABS: CREATININE 0.97 mg/dL (0.55-1.3)
[2025-01-16] MEDS: INSULIN (NOVOLOG) ASPART 100 UNITS/ML 10ML VIAL SQ SCH (16:48)
[2025-01-16] MEDS: GABAPENTIN 400 MG CAPSULE PO SCH (21:29)
[2025-01-16] MEDS: ATORVASTATIN CA 10 MG TABLET (FP) PO SCH (21:29)
[2025-01-17 09:42] LABS: ABSOLUTE IMMATURE GRANULOCYTES 0.21 x10^3/uL (0.0-0.031); BASOPHILS # 0.02 x10^3/uL (0.01-0.08); EOSINOPHIL % 0.1 % (0.8-7.0); EOSINOPHILS # 0.01 x10^3/uL (0.04-0.54); MCHC 34.2 g/dl (32.3-36.5); MEAN CELL VOLUME 87.9 fl (79.0-92.2); MEAN PLT VOLUME 10.7 fl (9.4-12.4); MONOCYTE # 0.50 x10^3/uL (0.30-0.82); MONOCYTE % 5.8 % (5.3-12.2); RDW 12.1 % (12.2-16.4)
[2025-01-17 09:54] LABS: GLUCOSE,RANDOM 263.0 mg/dL (74-106); TOT PROT 7.4 g/dl (6.4-8.2)
[2025-01-17 09:56] LABS: CO2 19.0 mmol/L (21-32)
[2025-01-17 09:57] LABS: ALK PHOS 46.0 U/L (40-150)
[2025-01-17 10:00] LABS: CREATININE 0.85 mg/dL (0.55-1.3); SGOT/AST 28.0 U/L (5-34); SGPT/ALT 40.0 U/L (0-55)
[2025-01-18] MEDS: ACETAMINOPHEN 325 MG TABLET (FP) PO PRN (01:31)
[2025-01-18 07:32] LABS: ABSOLUTE IMMATURE GRANULOCYTES 0.21 x10^3/uL (0.0-0.031); BASOPHILS # 0.02 x10^3/uL (0.01-0.08); EOSINOPHIL % 0.5 % (0.8-7.0); EOSINOPHILS # 0.05 x10^3/uL (0.04-0.54); MCHC 34.4 g/dl (32.3-36.5); MEAN CELL VOLUME 87.8 fl (79.0-92.2); MEAN PLT VOLUME 10.3 fl (9.4-12.4); MONOCYTE # 0.68 x10^3/uL (0.30-0.82); MONOCYTE % 7.0 % (5.3-12.2); RDW 12.0 % (12.2-16.4)
[2025-01-18 08:06] LABS: GLUCOSE,RANDOM 246.0 mg/dL (74-106)
[2025-01-18 08:07] LABS: TOT PROT 6.9 g/dl (6.4-8.2)
[2025-01-18 08:08] LABS: CO2 19.0 mmol/L (21-32)
[2025-01-18 08:12] LABS: CREATININE 0.77 mg/dL (0.55-1.3); SGOT/AST 28.0 U/L (5-34); SGPT/ALT 37.0 U/L (0-55)
[2025-01-18 09:28] LABS: ALK PHOS 43.0 U/L (40-150)
[2025-01-18 14:10] VITALS: BP 132/87; PULSE 88; RESP 20; TEMP 98.7
== END 2025-01-18 16:48 | disposition home or self-care (01) | DRG 638 ==
LOC: JER 18:48 → JERBED 21:16 → J7W 01-16 02:27 → OBSVTOIN 01-16 14:01 → J7W 01-17 12:03
PROVIDERS: ADMIT Student in an Organized Health Care Education/Training Program; ATTEND Nurse Practitioner
DX: E11.65 Type 2 diabetes mellitus with hyperglycemia (principal); E87.1 Hypo-osmolality and hyponatremia; E87.5 Hyperkalemia; E78.5 Hyperlipidemia, unspecified; I10 Essential (primary) hypertension; Z21 Asymptomatic human immunodeficiency virus [HIV] infection status; R42 Dizziness and giddiness; Z79.891 Long term (current) use of opiate analgesic
CPT/HCPCS: 36415; 80048; 80053; 81003; 82010; 82533; 82803; 82962; 83036; 83735; 83930; 84100; 84300; 84443; 85025; 86803; 87086; 87389; 87522; 93005; 93010; 99285-25; G0378